=== PATIENT | male | born 1965 | race American Indian/Alaskan Native ===

== ENCOUNTER 2018-02-06 09:34 | Day surgery (SDC) | payer OTHER ==
[2018-02-06] MEDS ORDERED: NACL 0.9% 1000 ML 1,000 ML IV SCH (10:00)
--- NOTE | 2018-02-06 12:17 | Anesthesia Consultation ---
Anesthesia Consult and Med Hx Date of service: 02/06/18 - Airway Anesthetic Teeth Evaluation: Good ROM Head & Neck: Adequate Mental/Hyoid Distance: Adequate Mallampati Class: Class III Intubation Access Assessment: Possibly Difficult - Pulmonary Exam CTA: Yes - Cardiac Exam Cardiac Exam: RRR - Pre-Operative Health Status ASA Pre-Surgery Classification: ASA3 Proposed Anesthetic Plan: MAC - Cardiovascular System Hx Hypertension: Yes - Gastrointestinal Hx Gastroesophageal Reflux Disease: Yes - Endocrine Hx Non-Insulin Dependent Diabetes: Yes - Other Systems Hx Obesity: Yes
--- NOTE | 2018-02-06 12:18 | Anesthesia Day of Surgery ---
Anesthesia Day of Surgery - Day of Surgery Patient Examined: Yes Patient H&P Reviewed: Yes Patient is NPO: Yes
[2018-02-06] MEDS ORDERED: WATER FOR IRRIG STERILE IR ONE (14:42)
[2018-02-06] MEDS ORDERED: DIPRIVAN 10 MG/ML IV ONE ×2 (14:43)
--- NOTE | 2018-02-06 15:15 | Operative Report ---
Operative Report Operative Report: Date of procedure: 02/06/2018 Procedure: Colonoscopy with Hot Biopsy Polypectomy. Attending physician: Benjamin Davidson MD Orthopedic Assistant: Benjamin Davidson MD Indication: Patient is a 52-year-old male who presents for screening colonoscopy. Patient also has a family and personal history of colon polyps and family history of colon cancer. A colonoscopy serves to evaluate patient so that treatment may be directed based on the findings. Consent: Informed consent was obtained after advising the patient and family regarding nature of this procedure, its indications, potential benefits as well as possible complications including but not limited to bleeding perforation and adverse reaction to medication, infection as well as other cardiopulmonary complications. An informed written and verbal consent was then obtained after due opportunity was provided for questions and answers. Monitoring: Patient was monitored continuously with pulse oximetry and electrocardiographic recordings as well as blood pressure recordings. Vital signs remained stable throughout this procedure with no untoward events. Preoperative assessment: Patient was assessed immediately prior to this procedure for capacity to tolerate monitored anesthesia care and moderate sedation as well as general anesthesia. Patient's ASA classification is 2, Mallampati class is 2, Hyomental distance is 3. Instrument: [employer] video colonoscope Medications: Propofol given intravenously in divided doses. For details please refer to anesthesia records. Description of procedure: Patient was placed in the left lateral decubitus position after achieving sedation, a digital rectal examination was performed following which the colonoscope was introduced into the anal verge and advanced to the cecum which was identified by the ileocecal valve, the appendiceal orifice, as well as by the cecal strap and direct transillumination. The colonoscope was subsequently withdrawn with careful inspection of all mucosal surfaces. Patient tolerated this procedure well and was subsequently taken to the recovery room. The following findings were noted. Findings: Patient has substantial retained stool that was mostly liquid in sections of the colon particularly in the ascending colon cecum and also in the descending colon. There was scattered diverticula seen in the sigmoid colon and descending colon. Patient had a diminutive polyp in the ascending colon which was removed by hot biopsy polypectomy. On the retroflex view at the anal verge, patient had internal hemorrhoids. Impression: Ascending colon polyp status post hot biopsy polypectomy. Retained stool Diverticular disease of the colon. Internal hemorrhoids. Plan: Follow pathology report High-fiber diet. Repeat colonoscopy in 1 year due to poor preparation and retained stool.
--- NOTE | 2018-02-06 15:15 | Discharge Summary ---
Short Stay Discharge Plan Activity: advance as tolerated Weight Bearing Status: Weight Bear as Tolerated Diet: regular Additional Instructions: Post Sedation D/C Instructions When you return home you may resume your regular diet unless otherwise directed. -Go directly home from the hospital and rest quietly. You may resume normal activities tomorrow. -Do NOT drive, return to work, operate any machinery or make any important personal or business decisions today. -Do NOT drink any alcohol or take nerve or sleeping drugs. They add to the effects of the medicine still present in your body. Follow up with: SADAF JANSEN MD [Other] - 7 Days
[2018-02-06 18:42] VITALS: BP 115/85
== END 2018-02-06 09:35 | disposition home or self-care (01) ==
LOC: GIO 09:34
PROVIDERS: ATTEND Internal Medicine Gastroenterology
DX: Z12.11 Encounter for screening for malignant neoplasm of colon (principal); K57.30 Diverticulosis of large intestine without perforation or abscess without bleeding; K64.8 Other hemorrhoids; K21.9 Gastro-esophageal reflux disease without esophagitis; E78.00 Pure hypercholesterolemia, unspecified; I10 Essential (primary) hypertension; E11.9 Type 2 diabetes mellitus without complications; E66.9 Obesity, unspecified; Z68.42 Body mass index [BMI] 45.0-49.9, adult; Z86.010 Personal history of colon polyps; Z79.84 Long term (current) use of oral hypoglycemic drugs; Z79.899 Other long term (current) drug therapy; Z98.890 Other specified postprocedural states; Z83.71 Family history of colonic polyps; Z80.0 Family history of malignant neoplasm of digestive organs
CPT/HCPCS: 45384; 82962; 88305; J2704; J7030

== ENCOUNTER 2018-02-20 10:09 | Day surgery (SDC) | payer OTHER ==
[~2018-02-20 10:09] MED LIST: NACL 0.9% 1000 ML 1,000 ML IV SCH
[2018-02-20] MEDS ORDERED: WATER FOR IRRIG STERILE IR ONE (11:32)
[2018-02-20] MEDS ORDERED: DIPRIVAN 10 MG/ML IV ONE (11:36)
[2018-02-20] MEDS ORDERED: VERSED ONE (11:36)
--- NOTE | 2018-02-20 12:33 | Anesthesia Consultation ---
Anesthesia Consult and Med Hx Date of service: 02/20/18 - Airway Anesthetic Teeth Evaluation: Good ROM Head & Neck: Adequate Mental/Hyoid Distance: Adequate Mallampati Class: Class III Intubation Access Assessment: Possibly Difficult (underbite) - Pulmonary Exam CTA: Yes - Cardiac Exam Cardiac Exam: RRR - Pre-Operative Health Status ASA Pre-Surgery Classification: ASA3 Proposed Anesthetic Plan: MAC - Cardiovascular System Hx Hypertension: Yes - Gastrointestinal Hx Gastroesophageal Reflux Disease: Yes - Endocrine Hx Non-Insulin Dependent Diabetes: Yes - Other Systems Hx Obesity: Yes
--- NOTE | 2018-02-20 12:33 | Anesthesia Day of Surgery ---
Anesthesia Day of Surgery - Day of Surgery Patient Examined: Yes Patient H&P Reviewed: Yes Patient is NPO: Yes
--- NOTE | 2018-02-20 14:11 | Operative Report ---
Operative Report Operative Report: Date: 02/20/2018 Operative Report: Date of procedure: 02/20/2018 Procedure: Esophagogastroduodenoscopy with multiple mucosal biopsies. Attending physician: Benjamin Davidson MD National Sales Trainer: Benjamin Davidson MD Indication: Patient is a 52 year-old male who presented with a history of epigastric pain with persistent heartburn and indigestion and dysphagia. An upper endoscopy is done to assess patient , so that treatment may be directed based on the findings. Consent: Informed consent was obtained after advising the patient and family regarding nature of this procedure, its indications, potential benefits as well as possible complications including but not limited to bleeding perforation and adverse reaction to medication, infection as well as other cardiopulmonary complications. An informed written and verbal consent was then obtained after due opportunity was provided for questions and answers. Monitoring: Patient was monitored continuously with pulse oximetry and electrocardiographic recordings as well as blood pressure recordings. Vital signs remained stable throughout this procedure with no untoward events. Preoperative assessment: Patient was assessed immediately prior to this procedure for capacity to tolerate monitored anesthesia care and moderate sedation as well as general anesthesia. Patient's ASA classification is 2, Mallampati class is 2, Hyomental distance is 3. Instrument: [employer] video endoscope Medications: Propofol given intravenously in divided doses. For details please refer to anesthesia records. Description of procedure: Patient was placed in the left lateral decubitus position after achieving sedation, the endoscope was introduced into the esophagus under direct vision. It was then advanced beyond the esophagus into the stomach and then beyond the stomach into the duodenum and to the second portion of the duodenum. It was subsequently withdrawn with careful inspection of all mucosal surfaces with the following findings. Findings: Patient has mild erosive esophagitis involving the distal esophagus with erythema and linear erosions in the distal esophagus. Patient has an irregular Z line at 41 cm. There was a diminutive sliding hiatal hernia seen on entry into the stomach. There was no stricture in the esophagus. There was erythema and erosions in the gastric antrum. Biopsies of the antrum were obtained for histopathology. Patient had 2 superficial ulcers with surrounding erosions in the duodenal bulb. Impression: Mild Erosive Esophagitis. Irregular Z line. Hiatal hernia. Mucosal changes suggestive of gastritis. Superficial ulcer in the duodenal bulb with surrounding erosions. Plan: Follow pathology report. Continue Proton pump inhibitors. Direct additional treatment based on the pathology report.
--- NOTE | 2018-02-20 14:12 | Discharge Summary ---
Short Stay Discharge Plan Activity: advance as tolerated Weight Bearing Status: Weight Bear as Tolerated Diet: regular Follow up with: LADARIUS BRANDON MD [Primary Care Provider] - 7 Days
[2018-02-20 14:27] VITALS: BP 132/90
== END 2018-02-20 10:10 | disposition home or self-care (01) ==
LOC: GIO 10:09
PROVIDERS: ATTEND Internal Medicine Gastroenterology
DX: K29.50 Unspecified chronic gastritis without bleeding (principal); K44.9 Diaphragmatic hernia without obstruction or gangrene; K21.0 Gastro-esophageal reflux disease with esophagitis; I10 Essential (primary) hypertension; E11.9 Type 2 diabetes mellitus without complications; E66.01 Morbid (severe) obesity due to excess calories; E78.00 Pure hypercholesterolemia, unspecified; Z79.899 Other long term (current) drug therapy; Z79.01 Long term (current) use of anticoagulants; Z87.891 Personal history of nicotine dependence; Z68.42 Body mass index [BMI] 45.0-49.9, adult
CPT/HCPCS: 43239; 82962; 88305; 88342; J2250; J2704; J7030

== ENCOUNTER 2021-07-20 12:12 | Outpatient (CLI) | payer BC ==
[2021-07-20 13:07] LABS: Hematocrit 39.7 % (35.5-45.6); Hemoglobin 13.4 gm/dl (11.8-15.2); Mean Corpuscular HGB Conc 34 % (32-34); Mean Corpuscular Volume 90 fl (84-94); Platelet Count 300 K/mm3 (140-440); Red Blood Count 4.44 M/mm3 (3.65-5.03); Red Cell Distribution Width 14.4 % (13.2-15.2)
[2021-07-20 13:28] LABS: Albumin 4.4 g/dL (3.9-5); Calcium 9.5 mg/dL (8.4-10.2)
[2021-07-20 14:55] LABS: Creatinine,Urine 177.4 mg/dL (0.1-20.0); Protein/Creatinine Ratio,Urine 0.99
== END 2021-07-20 12:13 | disposition home or self-care (01) ==
LOC: LAB 12:12
PROVIDERS: ATTEND Internal Medicine
DX: I12.9 Hypertensive chronic kidney disease with stage 1 through stage 4 chronic kidney disease, or unspecified chronic kidney disease (principal); E11.22 Type 2 diabetes mellitus with diabetic chronic kidney disease; N18.32 Chronic kidney disease, stage 3b; E87.2 Acidosis; R94.4 Abnormal results of kidney function studies; E66.8 Other obesity; Q63.9 Congenital malformation of kidney, unspecified; D17.9 Benign lipomatous neoplasm, unspecified; R80.9 Proteinuria, unspecified
CPT/HCPCS: 36415; 80053; 82570; 84156; 85027